=== PATIENT | female | born 1965 | race Caucasian/White ===

== ENCOUNTER 2019-04-26 15:29 | Emergency (ER) | payer BC, OTHER ==
[2019-04-26 15:45] VITALS: BP 110/83
--- NOTE | 2019-04-26 16:04 | UC ---
Ear Complaint HPI - HPI Summary HPI Summary: 53-year-old woman comes in with a chief complaint of right ear pain. Patient's had upper respiratory tract infection symptoms for 2 weeks. About a week ago when her ear was hurting her quite a bit she had some drainage to see a doctor in [facility] and was prescribed antibiotic eardrops. The ear canal pain and drainage has gone away however she still having right ear pain. She also has decreased hearing the right ear. She is to have rhinorrhea is yellow and green. She has a lot of pressure in the sinuses. She has been using Sudafed which helps with the symptoms but then the symptoms return. She's also been having some fevers. Denies any chest congestion or shortness of breath. - History of Current Complaint Chief Complaint: UCRespiratory Stated Complaint: CHEST CONGESTION, AND EAR ACHE Time Seen by Provider: 04/26/19 15:54 Hx Last Menstrual Period: 1 week ago, ending now Pain Intensity: 3 - Allergies/Home Medications Allergies/Adverse Reactions: Allergies Allergy/AdvReac Type Severity Reaction Status Date / Time penicillin V Allergy Hives Verified 04/26/19 15:45 Home Medications: Home Medications Acetaminophen [Tylenol] 650 mg PO ONCE PRN 04/26/19 [History Confirmed 04/26/19] Ciproflox/Dexameth OTIC.SUSP* [Ciprodex OTIC.SUSP*] 4 drop RIGHT EAR BID [History Confirmed 04/26/19] Pseudoephedrine HCl [Sudafed] 1 tab PO ONCE PRN 04/26/19 [History Confirmed ] PMH/Surg Hx/FS Hx/Imm Hx Previously Healthy: Yes - Surgical History Surgical History: None - Family History Known Family History: Positive: Non-Contributory - Social History Alcohol Use: Rare Substance Use Type: None Smoking Status (MU): Never Smoked Tobacco Review of Systems All Other Systems Reviewed And Are Negative: Yes Constitutional: Positive: Fever, Fatigue Skin: Positive: Negative Eyes: Positive: Negative ENT: Positive: Ear Ache, Nasal Discharge, Sinus Congestion, Sinus Pain/ Tenderness Respiratory: Positive: Negative Cardiovascular: Positive: Negative Gastrointestinal: Positive: Negative Motor: Positive: Negative Neurovascular: Positive: Negative Musculoskeletal: Positive: Negative Neurological: Positive: Negative Psychological: Positive: Negative Is Patient Immunocompromised?: No Physical Exam Triage Information Reviewed: Yes Appearance: No Pain Distress, Well-Nourished, Ill-Appearing - MILD Vital Signs: Initial Vital Signs Temp 98.7 F 04/26/19 15:41 Pulse 100 04/26/19 15:41 Resp 18 04/26/19 15:41 BP 110/83 04/26/19 15:41 Pulse Ox 98 04/26/19 15:41 Vital Signs Reviewed: Yes Eye Exam: Normal Eyes: Positive: Conjunctiva Clear ENT: Positive: Pharynx normal, Nasal congestion, Nasal drainage, TM dull - RT, Uvula midline, Other - NO TENDERNESS TO PALPATION OF TRAGI OR TRACTION OF PINNAE Neck: Positive: Supple Respiratory: Positive: Lungs clear, Normal breath sounds, No respiratory distress Cardiovascular: Positive: RRR Musculoskeletal Exam: Normal Musculoskeletal: Positive: Strength Intact, ROM Intact Neurological Exam: Normal Neurological: Positive: Alert, Muscle Tone Normal Psychological Exam: Normal Psychological: Positive: Age Appropriate Behavior Skin Exam: Normal Ear Complaint Course/Dx - Differential Dx/Diagnosis Provider Diagnosis: Sinusitis, Acute serous otitis media, right ear Discharge - Sign-Out/Discharge Documenting (check all that apply): Patient Departure All imaging exams completed and their final reports reviewed: No Studies - Discharge Plan Condition: Stable Disposition: HOME Prescriptions: DOXYcycline CAP(*) [DOXYcycline 100MG CAP(*)] 100 mg PO BID #20 cap Fluticasone NASAL SPRAY 50MCG* [Flonase NASAL SPRAY 50MCG*] 2 spray BOTH NARES DAILY #1 btl Patient Education Materials: Sinusitis (ED), Serous Otitis Media (ED) Referrals: Adelaide Hemphill MD [Primary Care Provider] - Additional Instructions: FOLLOW UP WITH YOUR DOCTOR IF NOT COMPLETELY IMPROVED. GET RECHECKED SOONER IF YOUR CONDITION WORSENS OR ANY QUESTIONS OR CONCERNS. - Billing Disposition and Condition Condition: STABLE Disposition: Home
== END 2019-04-26 16:18 | disposition home or self-care (01) ==
LOC: UCEAST 15:29
DX: J32.9 Chronic sinusitis, unspecified (principal); H65.01 Acute serous otitis media, right ear; Z88.0 Allergy status to penicillin
CPT/HCPCS: 99212; G0463